=== PATIENT | male | born 1980 | race African-American/Black ===

== ENCOUNTER 2016-12-12 16:39 | Emergency (ER) | payer OTHER ==
[~2016-12-12] VITALS: Ht 190.5 cm; Wt 85.7 kg
[~2016-12-12 16:39] MED LIST: AMOXIL500 MG PO; ANAPROX DS550 MG PO; CIPRO500 MG PO; HYDROCODONE BIT1 T11 PO; KEFLEX500 MG PO; PHENERGAN25 MG RC; Phenergan25 MG PO; TRAMADOL HCL50 MG PO
== END 2016-12-12 18:16 | disposition home or self-care (01) ==
LOC: ED 16:39
DX: M70.31 Other bursitis of elbow, right elbow (principal); F17.200 Nicotine dependence, unspecified, uncomplicated; Y93.9 Activity, unspecified

== ENCOUNTER → 2021-02-14 | Outpatient (CLI) | payer BC | END | disposition home or self-care (01) | LOC: CT 08:00 | PROVIDERS: ATTEND Internal Medicine | DX: K92.1 Melena (principal) ==

== ENCOUNTER → 2021-02-17 | Outpatient (CLI) | payer BC | END | disposition home or self-care (01) | LOC: CT 02:44 | PROVIDERS: ATTEND Internal Medicine | DX: K92.1 Melena (principal); R06.02 Shortness of breath; M51.37 Other intervertebral disc degeneration, lumbosacral region ==

== ENCOUNTER 2021-11-12 21:30 | Emergency (ER) | payer BC ==
[~2021-11-12] VITALS: Wt 97.5 kg
[2021-11-12] MEDS ORDERED: METOPROLOL SUCC25 M2 PO (21:44)
[2021-11-12] MEDS ORDERED: CARAFATE1 G1 PO (21:44)
[2021-11-12] MEDS ORDERED: PANTOPRAZOLE SO40 MG PO (21:44)
[2021-11-12 22:17] LABS: BASO % 0.1 % (0.0-1.0); HEMATOCRIT 47.3 % (42.0-52.0); LYMPH # 1.7 10*3/uL (1.3-4.4); LYMPH % 11.3 % (27.0-41.0); MEAN CELL VOLUME 90.3 fl (80.0-94.0); MEAN CORPUSCULAR HGB 31.3 pg (27.0-31.0); MEAN CORPUSCULAR HGB CONC 34.7 g/dl (33.0-37.0); MEAN PLATELET VOLUME 9.7 fl (9.6-12.3); MONO # 0.7 10*3/uL (0.1-1.0); MONO % 4.8 % (3.0-9.0); NEUT # 12.7 10*3/uL (2.3-7.9); NEUT % 83.4 % (47.0-73.0); PLATELET COUNT AUTOMATED 266 10*3/uL (130-400); RED BLOOD COUNT 5.24 10*6/uL (4.50-5.90); RED CELL DISTRI WIDTH 13.3 % (0-14.5); WHITE BLOOD COUNT 15.2 10*3/uL (4.8-10.8)
[2021-11-12 22:34] LABS: ALKALINE PHOSPHATASE 96 U/L (45-117); BUN 15 mg/dl (7-24); CHLORIDE 106 mmol/L (98-107); CREATININE 1.39 mg/dL (0.70-1.30); LIPASE 87 U/L (73-393); POTASSIUM 3.9 mmol/L (3.5-5.1); SGOT/AST 21 IU/L (3-35); SGPT/ALT 34 U/L (12-78); SODIUM 141 mmol/L (136-145); TOTAL PROTEIN 8.2 gm/dL (6.4-8.2)
[2021-11-12 22:39] LABS: ETHYL ALCOHOL < 3.0 mg/dl (<3)
[2021-11-12 23:15] LABS: BILIRUBIN Negative (Negative); BLOOD Negative (Negative); CLARITY Clear (Clear); COLOR Yellow (Yellow); GLUCOSE Negative (Negative); KETONE Negative (Negative); LEUKO ESTERASE Negative (Negative); NITRITE Negative (Negative); SPECIFIC GRAVITY >= 1.030 (1.001-1.030)
[2021-11-12 23:21] LABS: URINE AMPHETAMINES < 1000 (1000ng/ml); URINE BARBITURATES < 200 (200ng/ml); URINE BENZODIAZEPINES < 200 (200ng/ml); URINE CANNABINOIDS (THC) > 50 (50ng/ml); URINE COCAINE < 300 (300ng/ml); URINE METHADONE < 300 (300ng/ml); URINE OPIATES < 300 (300ng/ml)
[2021-11-12 23:23] LABS: MUCOUS 2+
[2021-11-12 23:24] LABS: URINE PHENCYCLIDINE < 25 (25ng/ml)
== END 2021-11-13 01:48 | disposition home or self-care (01) ==
LOC: ED 21:30
PROVIDERS: Physician Assistant
DX: R10.13 Epigastric pain (principal); R11.2 Nausea with vomiting, unspecified; F17.200 Nicotine dependence, unspecified, uncomplicated